=== PATIENT | female | born 1995 | race Caucasian/White ===

== ENCOUNTER 2019-10-20 04:19 | Emergency (ER) | payer MEDICAID ==
[~2019-10-20] VITALS: Ht 175.3 cm; Wt 101.7 kg
[2019-10-20 04:20] VITALS: BP 120/94
[2019-10-20] MEDS ORDERED: LIDOcaine 1% W/epiNEPHrine 1:100,000 20ml vial SQ ONE (04:25)
--- NOTE | 2019-10-20 04:32 | NUR ---
Pt's brother [phone]
== END 2019-10-20 06:16 | disposition home or self-care (01) ==
LOC: ER 04:20
DX: S01.01XA Laceration without foreign body of scalp, initial encounter (principal); F10.129 Alcohol abuse with intoxication, unspecified; W18.39XA Other fall on same level, initial encounter; Y93.89 Activity, other specified; Y92.89 Other specified places as the place of occurrence of the external cause; Y99.8 Other external cause status; Y90.9 Presence of alcohol in blood, level not specified
CPT/HCPCS: 12002; 70450; 99284